=== PATIENT | male | born 1935 | race Caucasian/White ===

== ENCOUNTER 2017-03-04 20:11 | Inpatient (IN) | payer MEDICARE, OTHER ==
[~2017-03-04] VITALS: Ht 182.9 cm; Wt 85.5 kg
[2017-03-04 21:04] LABS: BASOPHILS 0.1 % (0-2); EOSINOPHILS 0.1 % (0-7); HEMATOCRIT 45.2 % (42.0-54.0); HEMOGLOBIN 15.4 g/dL (13.5-17.5); IMMATURE GRANULOCYTES 0.2 % (0-5); LYMPHOCYTES 7.9 % (15-50); MCH 32.7 pg (26.0-34.0); MCHC 34.1 g/dL (31.0-37.0); MEAN PLATELET VOLUME 10.2 fL (7.4-10.4); MONOCYTES 6.6 % (2-11); NEUTROPHILS 85.1 % (40-80); PLATELET COUNT 164 10x3/uL (130-400); RBC 4.71 10x6/uL (4.20-6.10); RDW 13.5 % (11.5-14.5); WBC 9.1 10x3/uL (4.8-10.8)
[2017-03-04 21:13] LABS: APTT 27.5 SECONDS (22.8-39.4); INR 0.95 (0.85-1.17); PROTIME 12.5 SECONDS (11.6-15.0)
[2017-03-04 21:28] LABS: ALBUMIN 3.2 g/dL (3.4-5.0); BILIRUBIN - TOTAL 0.26 mg/dL (0.2-1.3); CALCIUM 8.7 mg/dL (8.5-10.1); CARBON DIOXIDE 24.7 mmol/L (21.0-32.0); CREATININE - SERUM 1.2 mg/dL (0.6-1.3); POTASSIUM - SERUM 3.7 mmol/L (3.5-5.1); PROTEIN - SERUM 6.3 g/dL (6.4-8.2)
--- NOTE | 2017-03-04 22:53 | NUR ---
RECEIVED REPORT FROM SORIN IN ER, IV-LFA- ANTIBONIC IS IN FUSING, BED IS LOW, SRX2, PLACED ON FALL PERCAUTION, SOCK, GIVEN, YELLOW RISK BAND PLACED, TELEMTRY ON, BED IS LOW, SRX2. CALL LIGHT IN REACH, WILL CONTINUE PLAN OF CARE
[2017-03-04] MEDS ORDERED: FLOMAX0.4 MG PO (22:59)
[2017-03-04] MEDS ORDERED: PROSCAR5 MG PO (23:00)
[2017-03-05] VITALS (7 sets, daily range): BP systolic 93–107; BP diastolic 48–59
--- NOTE | 2017-03-05 00:20 | NUR ---
CLOTHING PATTERN PREPARER AT BED SIDE TO OBTAIN VITALS. WILL CONT PLAN OF CARE.
--- NOTE | 2017-03-05 03:07 | NUR ---
PT SLEEPING, NS INFUSING @ 50 TO R.AC, CALL LIGHT IN REACH, WILL CONTINUE CARE OF PLAN
--- NOTE | 2017-03-05 10:16 | NUR ---
ASSESSMENT COMPLETED. TELEMERTY SHOWS SR. 02 AT 2 L/M PER NC. LEFT FA WITH NS AT 50. UP AB YONATHAN. DENIES ANY NEEDS. CALL LIGHT IN REACH WITH SR UP
--- NOTE | 2017-03-05 12:26 | NUR ---
RESTING QUIETLY NAD NOTED
--- NOTE | 2017-03-05 14:49 | NUR ---
LYING QUIETLY. DENIES ANY NEEDS. FAMILY AT BEDSIDE
[2017-03-05 15:45] LABS: APPEARANCE CLEAR (CLEAR); BILIRUBIN NEGATIVE (NEGATIVE); COLOR YELLOW (YELLOW); GLUCOSE NEGATIVE (NEGATIVE); KETONE NEGATIVE (NEGATIVE); LEUKOCYTE ESTERASE TRACE (NEGATIVE); NITRITE NEGATIVE (NEGATIVE); PROTEIN TRACE mg/dL (NEGATIVE); UROBILINOGEN NORMAL (NORMAL)
[2017-03-05 15:46] LABS: BACTERIA FEW /hpf (NONE SEEN); EPITHELIAL CELLS 0-5 /hpf (0-5); RED CELLS - URINE 0-5 /hpf (0-5); WHITE CELLS - URINE 0-5 /hpf (0-5)
--- NOTE | 2017-03-05 18:34 | NUR ---
UP IN ROOM DENIES ANY NEEDS. TELEMERTY SHOWS SR. CALL LIGHT IN REACH
--- NOTE | 2017-03-05 19:56 | NUR ---
RESUMED PT CARE, 022L, IV-L.HAND-NS @ 50, [id number], DENIES ANY NEEDS, CALL LIGHT IN REACH, WILL CONTINUE WITH PLAN OF CARE
--- NOTE | 2017-03-06 00:30 | NUR ---
HOUSEKEEPER AND LAUNDRY ASSISTANT AT BEDSIDE FOR VS. NEEDS ADDRESSED, CALL LIGHT IN REACH. WILL CONT TO MONITOR.
--- NOTE | 2017-03-06 02:45 | NUR ---
ASSESSMENT COMPLETE, BED IS LOW, SRX2, CALL LIGHT IN REACH, WILL CONTINUE PLAN OF CARE
[2017-03-06 06:05] VITALS: BP 116/62
[2017-03-06 06:24] LABS: BASOPHILS 0.1 % (0-2); EOSINOPHILS 0.2 % (0-7); HEMATOCRIT 43.2 % (42.0-54.0); HEMOGLOBIN 14.7 g/dL (13.5-17.5); IMMATURE GRANULOCYTES 0.2 % (0-5); LYMPHOCYTES 19.2 % (15-50); MCH 32.3 pg (26.0-34.0); MCV 94.9 fL (80.0-100.0); MONOCYTES 6.5 % (2-11); NEUTROPHILS 73.8 % (40-80); PLATELET COUNT 152 10x3/uL (130-400); RBC 4.55 10x6/uL (4.20-6.10); RDW 14.2 % (11.5-14.5)
[2017-03-06 06:26] LABS: WBC 13.1 10x3/uL (4.8-10.8)
[2017-03-06 06:42] LABS: ANION GAP 12.9 mmol/L (8-16); CALCIUM 8.2 mg/dL (8.5-10.1); CARBON DIOXIDE 24.8 mmol/L (21.0-32.0); CREATININE - SERUM 1.1 mg/dL (0.6-1.3); POTASSIUM - SERUM 3.7 mmol/L (3.5-5.1)
--- NOTE | 2017-03-06 07:48 | NUR ---
ASSESSMENT DONE. DENIES NEEDS.
[2017-03-06 08:40] VITALS: BP 114/67
--- NOTE | 2017-03-06 09:47 | NUR ---
RESTS WITH EYES CLOSED. IV PATENT. VISITORS AT BS. CALL LIGHT IN REACH. WILL MONITOR NEEDS.
[2017-03-06 12:31] VITALS: BP 117/59
[2017-03-06 16:58] VITALS: BP 110/61
--- NOTE | 2017-03-06 17:51 | NUR ---
WITHOUT CHANGES OR DISTRESS NOTED AT THIS TIME. DENIES NEEDS
[2017-03-06 20:46] VITALS: BP 126/65
[2017-03-06 23:58] VITALS: BP 122/61
[2017-03-07 02:49] VITALS: BP 126/65; Ht 182.9 cm; Wt 85.5 kg
[2017-03-07 04:11] VITALS: BP 145/68
--- NOTE | 2017-03-07 06:48 | NUR ---
SLEPT MAJORITY OF THE NIGHT. UP AMBULATING IN HALLWAY. WALKED TO COFFEE.
[2017-03-07 09:49] VITALS: BP 117/62
--- NOTE | 2017-03-07 11:00 | NUR ---
FAMILY IN ROOM PT SITTING IN CHAIR DENIES PAIN, OR NEEDS
--- NOTE | 2017-03-07 13:10 | NUR ---
TELEMETRY DC'D, DENIES PAIN OR NEEDS
[2017-03-07 13:12] VITALS: BP 123/69
--- NOTE | 2017-03-07 14:11 | NUR ---
DENIES PAIN OR NEEDS
--- NOTE | 2017-03-07 19:15 | NUR ---
RECEIVED REPORT, PT SITTING UP IN CHAIR, DENIES ANY NEEDS, CALL LIGHT IN REACH, WILL CONTINUE CARE OF PLAN
[2017-03-07 20:00] VITALS: BP 150/73
[2017-03-08 01:32] VITALS: BP 101/59
--- NOTE | 2017-03-08 01:44 | NUR ---
SLEEPING QUIETLY WITHOUT DISTRESS.
[2017-03-08 04:16] VITALS: BP 128/70
--- NOTE | 2017-03-08 04:21 | NUR ---
ASSESSMENT COMPLETE, SEE FLOW SHEET, PT SLEEPING, CALL LIGHT IN REACH, WILL CONTINUE CARE OF PLAN
[2017-03-08 06:39] LABS: BASOPHILS 0.1 % (0-2); HEMATOCRIT 41.5 % (42.0-54.0); HEMOGLOBIN 14.1 g/dL (13.5-17.5); IMMATURE GRANULOCYTES 0.1 % (0-5); LYMPHOCYTES 34.3 % (15-50); MCH 32.3 pg (26.0-34.0); MCV 95.2 fL (80.0-100.0); MEAN PLATELET VOLUME 11.1 fL (7.4-10.4); MONOCYTES 12.7 % (2-11); NEUTROPHILS 51.8 % (40-80); RBC 4.36 10x6/uL (4.20-6.10); RDW 14.1 % (11.5-14.5); WBC 6.8 10x3/uL (4.8-10.8)
[2017-03-08 06:48] LABS: PLATELET COUNT 190 10x3/uL (130-400)
--- NOTE | 2017-03-08 07:35 | NUR ---
PATIENT IS SITTING UP IN HIS BEDSIDE CHAIR WITH STATED EXECTATION FOR DISCHARGE TODAY. HE STATES THAT HE IS FEELING MUCH MUCH BETTER SINCE ADMIT. ENCOURAGED HIM TO FILL OUT THE LUNCH MENU JUST IN CASE.
[2017-03-08] MEDS ORDERED: MUCINEX600 MG PO (08:15)
[2017-03-08] MEDS ORDERED: AUGMENTIN 875-11 TAB PO (08:16)
[2017-03-08] MEDS ORDERED: ZITHROMAX250 MG PO (08:16)
[2017-03-08 08:33] VITALS: BP 129/87
--- NOTE | 2017-03-08 10:03 | NUR ---
Patient Name: JUNIOR FERGUSON Admission Status: ER Accout number: [id number] Admission Date: 03-04-2017 : 1935 Admission Diagnosis:FEVER, UNSPECIFIED Attending: LEANNA Current LOS: 4 Anticipated DC Date: 03-08-2017 Planned Disposition: Home Primary Insurance: MEDICARE A & B Discharge Planning Comments: * Is the patient Alert and Oriented? Yes 0 * How many steps to enter\exit or inside your home? NONE 0 * PCP DR. MITCHELL 0 * Pharmacy [facility] 0 * Preadmission Environment Home with Family 0 * ADLs Independent 0 * Equipment None 0 * Other Equipment NO MEDICAL EQUIPMENT PROVIDER PREFERENCE 0 * List name and contact numbers for known caregivers / representatives who currently or will assist patient after discharge: FRANKI FERGUSON, SPOUSE, 0 * Community resources currently utilized None 0 * Please name any agencies selected above. NONE 0 * Additional services required to return to the preadmission environment? No 0 * Can the patient safely return to the preadmission environment? Yes 0 * Has this patient been hospitalized within the prior 30 days at any hospital? No 0 CM MET WITH PT AND SPOUSE IN ROOM TO DISCUSS DISCHARGE PLANNING AND NEEDS. PT REPORTS LIVING AT HOME INDEPENDENTLY WITH SPOUSE. PT HAS NO MEDICAL EQUIPMENT AND NO OUTSIDE SERVICES ASSISTING IN THE HOME. CM DISCUSSED AVAILABILITY OF HOME HEALTH, REHAB SERVICES AND MEDICAL EQUIPMENT. PT DENIES DISCHARGE NEEDS, REPORTS HIS SPOUSE IS HERE TO PICK HIM UP FOR DISCHARGE HOME TODAY. IMPORTANT MESSAGE FROM MEDICARE PROVIDED AND EXPLAINED. Label Folder: Jesus Barrett
--- NOTE | 2017-03-08 11:20 | NUR ---
REIEWED DISCHARGE INSTRUCTIONS. DISCUSSED ABTS, PROBIOTICS, FOLLOW UP APPT AND PULMONARY HYGEINE. WHEELCHAIR CALLED TO ESCORT PATIENT TO FRONT DOOR.
--- NOTE | 2017-03-09 14:00 | DS ---
PATIENT:JUNIOR FERGUSON :[birth year] MEDICAL RECORD: [id number] DISCHARGE SUMMARY ADMISSION DATE: 03/04/17 DISCHARGE DATE: 03/08/17 DISCHARGE DIAGNOSES: Bilobar pneumonia, asplenia, history of hairy cell leukemia, hypoxemia, and leukocytosis. 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 The patient had a previous splenectomy. He was admitted by Dr. Ge in my absence. On admission, he was febrile. His white count was 9000 with left shift. Lactic acid was 2.0. Chest x-ray showed bilateral lower lobe community-acquired pneumonia. He was admitted and placed on IV antibiotics, Rocephin and Zithromax. Cultures were obtained. The patient was gradually improved with nebulizer therapy. He has been afebrile for the last 48 hours. His cough is minimally productive currently. His sat is 92% to 94% on room air with a temperature of 98.2, blood pressure 128/70. Chest x-ray today shows marked improvement bibasilar infiltrates and his white blood count has normalized to 6.8 thousand with normal differential. He will be discharged today in improved condition, to have followup in my office in 1 week with chest x-ray then. MEDICATIONS: Zithromax 250 mg p.o. daily for 5 days and discontinue, tamsulosin 0.4 mg p.o. daily, guaifenesin 600 mg b.i.d., finasteride 5 mg daily, Augmentin 875 mg p.o. b.i.d. for 7 days. DIET: Regular as tolerated. ACTIVITY: As tolerated. He will return to clinic to see me in 1 week with chest x-ray TRANSINT:[id number] Voice Confirmation ID: [id number] DOCUMENT ID: [id number] DORIS MITCHELL MD at 1400 CC: [id number] DICTATION DATE: 03/08/17814 DIRECTOR DANCE: 03/09/174 DIS IN 03/08/17 [facility] [address] [place] [address]
== END 2017-03-08 11:48 | disposition home or self-care (01) | DRG 195 ==
LOC: D.ER 20:11 → D.M2 22:21
PROVIDERS: Emergency Medicine; Family Medicine; ADMIT Family Medicine
DX: J18.1 Lobar pneumonia, unspecified organism (principal); Z90.81 Acquired absence of spleen; Z85.6 Personal history of leukemia; Z87.891 Personal history of nicotine dependence